=== PATIENT | male | born 1965 | race Hispanic/Latino ===

== ENCOUNTER 2019-11-07 20:27 | Emergency (ER) | payer OTHER ==
[2019-11-07 23:27] LABS: Absolute Lymphocytes (CBC) 3.1 K/uL (0.7-4.9); Basophils % 0.8 % (0-1.3); Hematocrit 46.6 % (39.6-49.0); Lymphocytes % 22.8 % (15.3-44.8); MPV 8.2 fL (7.6-11.3); RBC Red Blood Cell Count 5.28 M/uL (4.33-5.43)
[2019-11-07] MEDS ORDERED: NA CHLORIDE 0.9% 1,000 ML ONE (23:31)
[2019-11-07] MEDS ORDERED: KETOROLAC 30 MG/ML INJ ONE (23:44)
[2019-11-07 23:56] LABS: ALT/SGPT 34 U/L (12-78); AST/SGOT 17 U/L (15-37); Albumin 3.9 g/dL (3.4-5.0); Alkaline Phosphatase 93 U/L (45-117); BUN Blood Urea Nitrogen 14 mg/dL (7-18); Bicarbonate 28 mmol/L (21-32); Bilirubin Total 0.4 mg/dL (0.2-1.0); CKMB Creatine Kinase MB 2.4 ng/mL (0.3-3.6); Creatine Phosphokinase 200 U/L (39-308); Glucose Level 117 mg/dL (74-106); Protein, Total 7.5 g/dL (6.4-8.2); Sodium Level 140 mmol/L (136-145); Troponin (Emerg Dept Use Only) < 0.02 ng/mL (0.0-0.045)
--- NOTE | 2019-11-08 00:06 | ER ---
Nurse's Notes [facility] Name: Shan Jacome Age: 54 yrs Sex: Male : 1965 Arrival Date: 11/07/2019 Time: 20:29 Bed 14 Private MD: Diagnosis: Headache;Insomnia;Mastoiditis and related conditions Presentation: 11/06 20:52 Chief complaint: Patient states: i have right ear pressure few days ago and i have mg2 headache and nape pain today. denies fever and covid symptoms. i was taking ear drops and it's not helping. Coronavirus screen: Client denies travel out of the [place] in the last 14 days. At this time, the client does not indicate any symptoms associated with coronavirus-19. Ebola Screen: No symptoms or risks identified at this time. Initial Sepsis Screen: Does the patient meet any 2 criteria? No. Patient's initial sepsis screen is negative. Does the patient have a suspected source of infection? No. Patient's initial sepsis screen is negative. Risk Assessment: Do you want to hurt yourself or someone else? Patient reports no desire to harm self or others. Onset of symptoms was October 2019. 20:52 Method Of Arrival: Ambulatory mg2 20:52 Acuity: OLIVIA 4 mg2 Triage Assessment: 11/07 01:13 Headache History: The patient has had previous headaches. General: Appears in no mg2 apparent distress. comfortable. Pain: Pain currently is 0 out of 10 on a pain scale. Also complains of no other associated symptoms. Pain: Complains of pain in right base of the skull Pain began gradually. Historical: - Allergies: 11/06 20:56 No Known Allergies; mg2 - Home Meds: 20:56 vitorin [Active]; Nexium Oral [Active]; mg2 - PMHx: 20:56 acid reflux; High Cholesterol; mg2 - PSHx: 20:56 None; mg2 - Immunization history:: Flu vaccine is not up to date. - Social history:: Smoking status: Patient denies any tobacco usage or history of. Patient/guardian denies using alcohol, street drugs, IV drugs. - Family history:: not pertinent. Screenin:15 Abuse screen: Denies threats or abuse. Denies injuries from another. Nutritional mg2 screening: No deficits noted. Tuberculosis screening: No symptoms or risk factors identified. Fall Risk IV access (20 points). Assessment: 23:30 General: Appears in no apparent distress. comfortable, Behavior is calm, cooperative. mg2 Pain: Complains of pain in right base of the skull and right ear. Neuro: Level of Consciousness is awake, alert, obeys commands, Oriented to person, place, time, situation. Cardiovascular: Capillary refill < 3 seconds Patient's skin is warm and dry. Respiratory: Airway is patent Respiratory effort is even, unlabored, Respiratory pattern is regular, symmetrical. GI: No signs and/or symptoms were reported involving the gastrointestinal system. : No signs and/or symptoms were reported regarding the genitourinary system. EENT: Reports right ear pressure. Derm: Skin is intact, is healthy with good turgor, Skin is pink, warm \T\ dry. normal. Musculoskeletal: Circulation, motion, and sensation intact. Capillary refill < 3 seconds. Vital Signs: 20:52 BP 165 / 108; Pulse 59; Resp 17; Temp 98.1(TE); Pulse Ox 99% on R/A; Weight 95.25 kg; mg2 Height 5 ft. 9 in. (175.26 cm); 23:36 BP 139 / 81; Pulse 52; Resp 18; Pulse Ox 100% on R/A; mg2 20:52 Body Mass Index 31.01 (95.25 kg, 175.26 cm) mg2 Beau Coma Score: 23:15 Eye Response: spontaneous(4). Verbal Response: oriented(5). Motor Response: obeys garland commands(6). Total: 15. ED Course: 20:29 Patient arrived in ED. ag3 20:55 Triage completed. mg2 20:56 Arm band placed on. mg2 22:34 Chacho Jarquin MD is Attending Physician. garland 23:07 Karl Bonds, SIDNEY is Primary Nurse. mg2 23:15 Inserted saline lock: 20 gauge in right antecubital area, using aseptic technique. mg2 Blood collected. 23:38 CT Head Brain wo Cont In Process Unspecified. EDMS 11/07 00:05 Pedro Todd MD is Referral Physician. garland 00:07 Kaelyn López MD is Referral Physician. garland 00:46 Chest Single View XRAY In Process Unspecified. EDMS 01:12 No provider procedures requiring assistance completed. mg2 01:13 Patient has correct armband on for positive identification. mg2 01:13 IV discontinued, intact, bleeding controlled, No redness/swelling at site. Pressure mg2 dressing applied. Administered Medications: 11/06 23:16 Drug: NS 0.9% 1000 ml Route: IV; Rate: 1 bolus; Site: right antecubital; mg2 11/07 01:11 Follow up: Response: No adverse reaction; IV Status: Completed infusion; IV Intake: mg2 1000ml 11/06 23:40 Drug: TORadol 30 mg Route: IVP; Site: right antecubital; mg2 11/07 01:11 Follow up: Response: No adverse reaction; Marked relief of symptoms mg2 00:41 Drug: Rocephin 1 grams Route: IV; Rate: per protocol; Site: right antecubital; mg2 01:11 Follow up: Response: No adverse reaction; IV Status: Completed infusion mg2 01:02 Drug: Restoril 30 mg Route: PO; mg2 01:11 Follow up: Response: No adverse reaction; Medication administered at discharge. mg2 01:02 Drug: [place] 10 mg-325 mg 1 tabs Route: PO; mg2 01:11 Follow up: Response: No adverse reaction; Marked relief of symptoms; Medication mg2 administered at discharge. Intake: 01:11 IV: 1000ml; Total: 1000ml. mg2 Outcome: 00:05 Discharge ordered by . garland 01:14 Discharged to home ambulatory, with family. mg2 01:14 Condition: stable 01:14 Discharge instructions given to patient, family, Instructed on discharge instructions, follow up and referral plans. medication usage, Demonstrated understanding of instructions, follow-up care, medications, Prescriptions given X 3. 01:14 Patient left the ED. mg2 Signatures: Dispatcher [employer] EDChacho Chamberlain MD MD cha Gardose, Michele, RN RN mg2 Agustina Burton ag3 Corrections: (The following items were deleted from the chart) 11/06 20:56 20:52 Pulse 59bpm; Resp 17bpm; Pulse Ox 99% RA; Temp 98.1F Temporal; 95.25 kg; Height 5 mg2 ft. 9 in.; BMI: 31.0; mg2
--- NOTE | 2019-11-08 00:06 | EDPHYS ---
Physician Documentation [facility] Name: Shan Jacome Age: 54 yrs Sex: Male : 1965 Arrival Date: 11/07/2019 Time: 20:29 Bed 14 Private MD: ED Physician Chacho Jarquin HPI: 11/06 23:11 This 54 yrs old Male presents to ER via Ambulatory with complaints of garland Headache, Back Pain. 23:11 The patient complains of pain to the left side of the back of head, left occipital garland area, left ear, left base of the skull, right side of the back of head, right occipital area, right ear and right base of the skull. The patient describes the headache as aching, constant. Onset: The symptoms/episode began/occurred 3 day(s) ago. Associated signs and symptoms: Pertinent positives: bilateral ear pain. Severity of symptoms: At its worst the pain was mild, in the emergency department the pain is unchanged. Headache History: Denies prior headaches. The patient has not experienced similar symptoms in the past. Historical: - Allergies: 20:56 No Known Allergies; mg2 - Home Meds: 20:56 vitorin [Active]; Nexium Oral [Active]; mg2 - PMHx: 20:56 acid reflux; High Cholesterol; mg2 - PSHx: 20:56 None; mg2 - Immunization history:: Flu vaccine is not up to date. - Social history:: Smoking status: Patient denies any tobacco usage or history of. Patient/guardian denies using alcohol, street drugs, IV drugs. - Family history:: not pertinent. ROS: 23:11 Constitutional: Negative for fever, chills, and weight loss, Eyes: Negative for injury, garland pain, redness, and discharge, Neck: Negative for injury, pain, and swelling, Cardiovascular: Negative for chest pain, palpitations, and edema, Respiratory: Negative for shortness of breath, cough, wheezing, and pleuritic chest pain, Abdomen/GI: Negative for abdominal pain, nausea, vomiting, diarrhea, and constipation, Back: Negative for injury and pain, : Negative for injury, bleeding, discharge, and swelling, MS/Extremity: Negative for injury and deformity, Skin: Negative for injury, rash, and discoloration, Psych: Negative for depression, anxiety, suicide ideation, homicidal ideation, and hallucinations, Allergy/Immunology: Negative for hives, rash, and allergies, Endocrine: Negative for neck swelling, polydipsia, polyuria, polyphagia, and marked weight changes, Hematologic/Lymphatic: Negative for swollen nodes, abnormal bleeding, and unusual bruising. 23:11 ENT: Positive for ear pain. 23:11 Neuro: Positive for headache. Exam: 23:11 Constitutional: This is a well developed, well nourished patient who is awake, alert, garland and in no acute distress. Eyes: Pupils equal round and reactive to light, extra-ocular motions intact. Lids and lashes normal. Conjunctiva and sclera are non-icteric and not injected. Cornea within normal limits. Periorbital areas with no swelling, redness, or edema. ENT: Nares patent. No nasal discharge, no septal abnormalities noted. Tympanic membranes are normal and external auditory canals are clear. Oropharynx with no redness, swelling, or masses, exudates, or evidence of obstruction, uvula midline. Mucous membranes moist. Neck: Trachea midline, no thyromegaly or masses palpated, and no cervical lymphadenopathy. Supple, full range of motion without nuchal rigidity, or vertebral point tenderness. No Meningismus. Chest/axilla: Normal chest wall appearance and motion. Nontender with no deformity. No lesions are appreciated. Cardiovascular: Regular rate and rhythm with a normal S1 and S2. No gallops, murmurs, or rubs. Normal PMI, no JVD. No pulse deficits. Respiratory: Lungs have equal breath sounds bilaterally, clear to auscultation and percussion. No rales, rhonchi or wheezes noted. No increased work of breathing, no retractions or nasal flaring. Abdomen/GI: Soft, non-tender, with normal bowel sounds. No distension or tympany. No guarding or rebound. No evidence of tenderness throughout. Back: No spinal tenderness. No costovertebral tenderness. Full range of motion. Male : Normal genitalia with no discharge or lesions. Skin: Warm, dry with normal turgor. Normal color with no rashes, no lesions, and no evidence of cellulitis. MS/ Extremity: Pulses equal, no cyanosis. Neurovascular intact. Full, normal range of motion. Neuro: Awake and alert, GCS 15, oriented to person, place, time, and situation. Cranial nerves II-XII grossly intact. Motor strength 5/5 in all extremities. Sensory grossly intact. Cerebellar exam normal. Normal gait. Psych: Awake, alert, with orientation to person, place and time. Behavior, mood, and affect are within normal limits. 23:11 Head/face: Noted is tenderness, that is mild, of the left base of the skull and right base of the skull. 23:33 Neck: External neck: is normal, no acute changes, C-spine: no acute changes, [facility] ROM/movement: is normal, no acute changes, Meningeal signs: are not present, Kernig's sign is negative, Brudzinski's sign is negative. 23:41 ECG was reviewed by the Attending Physician. [facility] 11/07 00:05 Neck: Lymph nodes: no appreciated lymphadenopathy. [facility] Vital Signs: 11/06 20:52 BP 165 / 108; Pulse 59; Resp 17; Temp 98.1(TE); Pulse Ox 99% on R/A; Weight 95.25 kg; mg2 Height 5 ft. 9 in. (175.26 cm); 23:36 BP 139 / 81; Pulse 52; Resp 18; Pulse Ox 100% on R/A; mg2 20:52 Body Mass Index 31.01 (95.25 kg, 175.26 cm) mg2 [place] Coma Score: 23:15 Eye Response: spontaneous(4). Verbal Response: oriented(5). Motor Response: obeys [facility] commands(6). Total: 15. MDM: 22:35 Patient medically screened. garland 23:15 Differential diagnosis: cluster headache, hyponatremia, tension headache. Data [facility] reviewed: vital signs, nurses notes, lab test result(s), EKG, radiologic studies. Data interpreted: playground monitor: rate is 59 beats/min, rhythm is regular, Pulse oximetry: on room air is 99 %. Test interpretation: by ED physician or midlevel provider: ECG, plain radiologic studies. Counseling: I had a detailed discussion with the patient and/or guardian regarding: the historical points, exam findings, and any diagnostic results supporting the discharge/admit diagnosis, the presence of at least one elevated blood pressure reading (>120/80) during this emergency department visit, lab results, radiology results, the need for outpatient follow up. 11/06 23:10 Order name: CBC with Diff; Complete Time: 00:03 [facility] 11/06 23:10 Order name: Comprehensive Metabolic Panel; Complete Time: 00:03 [facility] 11/06 23:10 Order name: CK; Complete Time: 00:03 [facility] 11/06 23:10 Order name: Ckmb; Complete Time: 00:03 [facility] 11/06 23:10 Order name: Troponin (emerg Dept Use Only); Complete Time: 00:03 [facility] 11/06 23:10 Order name: TSH; Complete Time: 00:03 [facility] 11/06 23:10 Order name: CT Head Brain wo Cont [facility] 11/06 23:10 Order name: EKG; Complete Time: 23:11 [facility] 11/07 00:05 Order name: Chest Single View XRAY [facility] 11/06 23:10 Order name: EKG - Nurse/Tech; Complete Time: 23:30 [facility] EC:41 Rate is 51 beats/min. Rhythm is regular. QRS [place] is Normal. GA interval is normal. QRS [place] interval is normal. QT interval is normal. No Q waves. T waves are Normal. No ST changes noted. Clinical impression: NSR w/ Non-specific ST/T Changes and Sinus bradycardia. Interpreted by me. Reviewed by me. Administered Medications: 23:16 Drug: NS 0.9% 1000 ml Route: IV; Rate: 1 bolus; Site: right antecubital; mg2 11/07 01:11 Follow up: Response: No adverse reaction; IV Status: Completed infusion; IV Intake: mg2 1000ml 11/06 23:40 Drug: TORadol 30 mg Route: IVP; Site: right antecubital; mg2 11/07 01:11 Follow up: Response: No adverse reaction; Marked relief of symptoms mg2 00:41 Drug: Rocephin 1 grams Route: IV; Rate: per protocol; Site: right antecubital; mg2 01:11 Follow up: Response: No adverse reaction; IV Status: Completed infusion mg2 01:02 Drug: Restoril 30 mg Route: PO; mg2 01:11 Follow up: Response: No adverse reaction; Medication administered at discharge. mg2 01:02 Drug: [place] 10 mg-325 mg 1 tabs Route: PO; mg2 01:11 Follow up: Response: No adverse reaction; Marked relief of symptoms; Medication mg2 administered at discharge. Disposition: 11/08/19 00:05 Discharged to Home. Impression: Headache, Insomnia, Mastoiditis and related conditions. - Condition is Stable. - Discharge Instructions: General Headache Without Cause, Insomnia, General Headache Without Cause, [id number]. - Prescriptions for Restoril 15 mg Oral capsule - take 1 capsule by ORAL route once daily at bedtime as needed; 10 capsule. Augmentin 875- 125 mg Oral Tablet - take 1 tablet by ORAL route every 12 hours for 7 days; 14 tablet. Tylenol- Codeine #3 300-30 mg Oral Tablet - take 2 tablets by ORAL route every 6 hours As needed; 20 tablet. - Medication Reconciliation Form, Thank You Letter, Antibiotic Education, Prescription Opioid Use, Work release form form. - Follow up: Private Physician; When: 2 - 3 days; Reason: Recheck today's complaints, Continuance of care, Re-evaluation by your physician. Follow up: Pedro Todd; When: 2 - 3 days; Reason: Recheck today's complaints, Continuance of care, Re-evaluation by your physician. Follow up: Kaelyn López MD; When: 2 - 3 days; Reason: Recheck today's complaints, Re-evaluation by your physician. - Problem is new. - Symptoms have improved. Signatures: Dispatcher [employer] EDChacho Chamberlain MD MD cha Gardose, Michele, RN RN mg2 Corrections: (The following items were deleted from the chart) 00:07 00:05 11/08/2019 00:05 Discharged to Home. Impression: Headache; Insomnia. Condition is garland Stable. Discharge Instructions: General Headache Without Cause, Insomnia, General Headache Without Cause, [id number]. Prescriptions for Restoril 15 mg Oral capsule - take 1 capsule by ORAL route once daily at bedtime as needed; 10 capsule. and Forms are Medication Reconciliation Form, Thank You Letter, Antibiotic Education, Prescription Opioid Use. Follow up: Private Physician; When: 2 - 3 days; Reason: Recheck today's complaints, Continuance of care, Re-evaluation by your physician. Follow up: Pedro Todd; When: 2 - 3 days; Reason: Recheck today's complaints, Continuance of care, Re-evaluation by your physician. Problem is new. Symptoms have improved. garland 00:36 00:07 11/08/2019 00:05 Discharged to Home. Impression: Headache; Insomnia. Condition is garland Stable. Discharge Instructions: General Headache Without Cause, Insomnia, General Headache Without Cause, [id number]. Prescriptions for Restoril 15 mg Oral capsule - take 1 capsule by ORAL route once daily at bedtime as needed; 10 capsule, Augmentin 875-125 mg Oral Tablet - take 1 tablet by ORAL route every 12 hours for 7 days; 14 tablet. and Forms are Medication Reconciliation Form, Thank You Letter, Antibiotic Education, Prescription Opioid Use. Follow up: Private Physician; When: 2 - 3 days; Reason: Recheck today's complaints, Continuance of care, Re-evaluation by your physician. Follow up: Pedro Todd; When: 2 - 3 days; Reason: Recheck today's complaints, Continuance of care, Re-evaluation by your physician. Follow up: Kaelyn López; When: 2 - 3 days; Reason: Recheck today's complaints, Re-evaluation by your physician. Problem is new. Symptoms have improved. garland 01:14 00:36 11/08/2019 00:05 Discharged to Home. Impression: Headache; Insomnia; Mastoiditis mg2 and related conditions. Condition is Stable. Discharge Instructions: General Headache Without Cause, Insomnia, General Headache Without Cause, [id number]. Prescriptions for Restoril 15 mg Oral capsule - take 1 capsule by ORAL route once daily at bedtime as needed; 10 capsule, Augmentin 875-125 mg Oral Tablet - take 1 tablet by ORAL route every 12 hours for 7 days; 14 tablet. and Forms are Medication Reconciliation Form, Thank You Letter, Antibiotic Education, Prescription Opioid Use. Follow up: Private Physician; When: 2 - 3 days; Reason: Recheck today's complaints, Continuance of care, Re-evaluation by your physician. Follow up: Pedro Todd; When: 2 - 3 days; Reason: Recheck today's complaints, Continuance of care, Re-evaluation by your physician. Follow up: Kaelyn López; When: 2 - 3 days; Reason: Recheck today's complaints, Re-evaluation by your physician. Problem is new. Symptoms have improved. garland
[2019-11-08] MEDS ORDERED: CEFTRIAXONE/SWI 1gm 1 GM/10 ML SYR ONE (00:45)
[2019-11-08] MEDS ORDERED: TEMAZEPAM 15 MG CAP ONE (00:52)
[2019-11-08] MEDS ORDERED: HYDROCODONE/APAP 10/325 TAB ONE (01:12)
[2019-11-08 01:25] VITALS: BP 139/81; O2SAT 100
[2019-11-08 01:26] VITALS: TEMP 98.1
--- NOTE | 2019-11-08 07:19 | RAD REPORT ---
EXAM DESCRIPTION: Zeina Single View11/08/2019 12:46 am CLINICAL HISTORY: Cough COMPARISON: 2011 FINDINGS: The lungs appear clear of acute infiltrate. The heart is normal size IMPRESSION: No acute abnormalities displayed
--- NOTE | 2019-11-08 17:15 | RAD REPORT ---
EXAM DESCRIPTION: CT - Head Brain Wo Cont - 11/08/2019 6:42 am CLINICAL HISTORY: Dizziness; Headache TECHNIQUE: Contiguous axial CT images obtained through the brain without IV contrast. Coronal and sa gittal reformatted images were provided. This exam was performed according to our departmental dose-optimization program, which includes autom ated exposure control, adjustment of the mA and/or kV according to patient size and/or use of iterati ve reconstruction technique. COMPARISON: None available for comparison FINDINGS: Brain: No significant white matter changes. No focal mass effect. Olivares-white matter differ entiation is within normal limits. No hemorrhage. Ventricles: No ventriculomegaly or midline shift. Extra-axial spaces: No extra-axial collection or hemorrhage. Paranasal sinuses and mastoid air cells: Well-aerated Vessels: Unremarkable Bones: Unremarkable Soft tissues: Unremarkable IMPRESSION: No acute intracranial or extra-axial abnormality. Electronically signed by: Lennox Petty MD 11/07/2019 11:43 PM CDT Due to temporary technical issues with the PACS/Fluency reporting system, reports are being signed by the in house radiologist without review as a courtesy to ensure prompt reporting. The interpreting r adiologist is fully responsible for the content of the report.
--- NOTE | 2019-11-09 12:28 | EKG ---
Test Date: 2019-11-07 Test Time: 23:32:43 Assistant Professor Of Psychology: JENNIFER MEASUREMENT RESULTS: Intervals: Rate: 51 VA: 174 QRSD: 90 QT: 418 QTc: 385 [place]: P: 58 VA: 174 QRS: 69 T: 39 INTERPRETIVE STATEMENTS: Sinus bradycardia Otherwise normal ECG No previous ECG available for comparison Electronically Signed On 11-09-19 12:24:47 CDT by Derrick Ann
== END 2019-11-08 01:14 | disposition home or self-care (01) ==
LOC: ER 20:27
DX: G47.00 Insomnia, unspecified (principal); H70.93 Unspecified mastoiditis, bilateral; E78.00 Pure hypercholesterolemia, unspecified
CPT/HCPCS: 96365; 96361; 93005; 85025; 36415; 82550; 84443; 84484; 82553; 80053; 70450; 71045; 96375; 99284; J0696; J7030

== ENCOUNTER 2019-11-12 09:59 | Emergency (ER) | payer OTHER ==
[2019-11-12] MEDS ORDERED: NA CHLORIDE 0.9% 1,000 ML ONE (11:09)
--- NOTE | 2019-11-12 11:20 | RAD REPORT ---
EXAM DESCRIPTION: Zeina Single View11/12/2019 11:05 am CLINICAL HISTORY: Cough COMPARISON: November 08, 2019 FINDINGS: The lungs appear clear of acute infiltrate. The heart is normal size IMPRESSION: No acute abnormalities displayed
[2019-11-12 11:36] LABS: Absolute Lymphocytes (CBC) 1.7 K/uL (0.7-4.9); Basophils % 0.7 % (0-1.3); Lymphocytes % 16.8 % (15.3-44.8); MPV 8.1 fL (7.6-11.3); RBC Red Blood Cell Count 5.36 M/uL (4.33-5.43)
--- NOTE | 2019-11-12 11:44 | RAD REPORT ---
EXAM DESCRIPTION: CT - Head Brain Wo Cont - 11/12/2019 11:10 am CLINICAL HISTORY: Headache COMPARISON: November 07, 2019 TECHNIQUE: Computed axial tomography of the head was obtained. IV contrast was not requested. All CT scans are performed using dose optimization technique as appropriate and may include automated exposure control or mA/KV adjustment according to patient size. FINDINGS: An intracranial bleed is not seen . The ventricles are normal in caliber. No extra-axial fluid collection is noted. Fluid within the sinuses/ mastoids is not seen. IMPRESSION: No acute intracranial abnormality is seen. If patient's symptoms persist MRI of the bra in would be recommended.
[2019-11-12 11:59] LABS: ALT/SGPT 40 U/L (12-78); AST/SGOT 22 U/L (15-37); Alkaline Phosphatase 85 U/L (45-117); BUN Blood Urea Nitrogen 10 mg/dL (7-18); Bicarbonate 26 mmol/L (21-32); Bilirubin Direct 0.2 mg/dL (0-0.2); Bilirubin Total 0.6 mg/dL (0.2-1.0); Glucose Level 120 mg/dL (74-106); Magnesium 2.5 mg/dL (1.8-2.4); NT PRO-BNP 16 pg/mL (<125); Potassium 3.7 mmol/L (3.5-5.1); Protein, Total 7.4 g/dL (6.4-8.2); Sodium Level 141 mmol/L (136-145); Troponin (Emerg Dept Use Only) < 0.02 ng/mL (0.0-0.045)
--- NOTE | 2019-11-12 13:15 | ER ---
Nurse's Notes [facility] Name: Shan Jacome Age: 54 yrs Sex: Male : 1965 Arrival Date: 11/12/2019 Time: 10:00 Bed 2 Private MD: Diagnosis: Insomnia;Anxiety disorder, unspecified Presentation: 11/11 10:21 Chief complaint: Spouse and/or significant other states: : Was here for ca1 the same thing, was prescribed Amoxicillin for bacterial ear infection. Started to feel a little better, but has gotten worse last night. Shivers, headache, panic and anxiety attacks, feels like I am going to faint, gets worse after I take the medication. Denies hives but reports chest pressure, nausea. Coronavirus screen: Client denies travel out of the [place] in the last 14 days. At this time, the client does not indicate any symptoms associated with coronavirus-19. Ebola Screen: Patient negative for fever greater than or equal to 101.5 degrees Fahrenheit, and additional compatible Ebola Virus Disease symptoms Patient denies exposure to infectious person. Patient denies travel to an Ebola-affected area in the 21 days before illness onset. No symptoms or risks identified at this time. Initial Sepsis Screen: Does the patient meet any 2 criteria? No. Patient's initial sepsis screen is negative. Does the patient have a suspected source of infection? No. Patient's initial sepsis screen is negative. Risk Assessment: Do you want to hurt yourself or someone else? Patient reports no desire to harm self or others. Onset of symptoms was November 12, 2019. 10:21 Method Of Arrival: Wheelchair ca1 10:21 Acuity: OLIVIA 3 ca1 Historical: - Allergies: 10:25 No Known Allergies; ca1 - PMHx: 10:25 acid reflux; High Cholesterol; ca1 - PSHx: 10:25 None; ca1 - Immunization history:: Adult Immunizations up to date. - Social history:: Smoking status: Patient denies any tobacco usage or history of. - Family history:: not pertinent. Screenin:32 Abuse screen: Denies threats or abuse. Denies injuries from another. Nutritional jl7 screening: No deficits noted. Tuberculosis screening: No symptoms or risk factors identified. Fall Risk IV access (20 points). Total Farfan Fall Scale indicates No Risk (0-24 pts). Assessment: 10:30 General: Appears in no apparent distress. uncomfortable, Behavior is cooperative, jl7 anxious. Pain: Complains of pain in CORDERO. Neuro: Level of Consciousness is awake, alert, obeys commands, Oriented to person, place, time, situation. Cardiovascular: Patient's skin is warm and dry. Respiratory: Airway is patent Respiratory effort is even, unlabored, Respiratory pattern is regular, symmetrical. EENT: Reports "I was dx with a bacterial infection in the ear passages.". Derm: Skin is pink, warm \\T\\ dry. 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 11:25 Reassessment: pt states "i want to be covid swabbed", provider notified. tw2 11:30 Reassessment: provider at bedside at this time. tw2 11:32 Reassessment: Pt's states "I want you to test him for the bug that's in the jl7 water." Educated and pt that there's isn't a rapid test. Pt states "Ouch. I have a sharp pain in my neck." massaging pt's neck at this time. Will continue to monitor. 13:00 Reassessment: Patient appears in no apparent distress at this time. Patient and/or tw2 family updated on plan of care and expected duration. Pain level reassessed. Patient is alert, oriented x 3, equal unlabored respirations, skin warm/dry/pink. 13:30 Reassessment: Patient appears in no apparent distress at this time. Patient and/or tw2 family updated on plan of care and expected duration. Pain level reassessed. Patient is alert, oriented x 3, equal unlabored respirations, skin warm/dry/pink. Vital Signs: 10:21 BP 127 / 77; Pulse 57; Resp 18 S; Temp 97.6(TE); Pulse Ox 100% on R/A; Weight 95.25 kg ca1 (R); Height 5 ft. 9 in. (175.26 cm) (R); 11:30 BP 129 / 81; Pulse 59; Resp 16; Pulse Ox 100% on R/A; tw2 12:08 BP 138 / 77; Pulse 50; Resp 15; Pulse Ox 97% ; jl7 13:00 BP 114 / 61; Pulse 54; Resp 17; Pulse Ox 100% on R/A; tw2 13:19 BP 109 / 66; Pulse 57; Resp 17; Pulse Ox 99% on R/A; tw2 10:21 Body Mass Index 31.01 (95.25 kg, 175.26 cm) ca1 [place] Coma Score: 11:44 Eye Response: spontaneous(4). Verbal Response: oriented(5). Motor Response: obeys garland commands(6). Total: 15. ED Course: 10:00 Patient arrived in ED. as 10:24 Triage completed. ca1 10:25 Arm band placed on right wrist. ca1 10:29 Chacho Jarquin MD is Attending Physician. garland 10:30 Maryan Lozada, RN is Primary Nurse. tw2 10:30 Primary Nurse role handed off by Maryan Lozada, RN jl7 10:30 Argentina Mayorga, RN is Primary Nurse. jl7 10:30 Patient has correct armband on for positive identification. Placed in gown. Bed in low jl7 position. Call light in reach. Side rails up X2. manager monitoring on. Pulse ox on. NIBP on. Warm blanket given. 10:48 Warm blanket given. jl7 11:03 XRAY Chest (1 view) In Process Unspecified. EDMS 11:10 CT Head Brain wo Cont In Process Unspecified. EDMS 11:12 CT completed. Patient tolerated procedure well. Patient moved to CT via stretcher. sw Patient moved back from CT. 11:20 EKG done, by ED staff, reviewed by Chacho Jarquin MD. jl7 11:32 Initial lab(s) drawn, by wy, sent to lab. COVID swab sent to lab. Inserted saline lock: jl7 20 gauge in right wrist, using aseptic technique. Blood collected. 13:12 Ferny Karus MD is Referral Physician. garland 13:12 Smith Hinson MD is Referral Physician. garland 13:29 No provider procedures requiring assistance completed. IV discontinued, intact, tw2 bleeding controlled, No redness/swelling at site. Pressure dressing applied. Administered Medications: 11:50 Drug: NS 0.9% 1000 ml Route: IV; Rate: 1 bolus; Site: right wrist; jl7 13:20 Follow up: Response: No adverse reaction; IV Status: Completed infusion; IV Intake: tw2 1000ml Intake: 13:20 IV: 1000ml; Total: 1000ml. 2 Outcome: 13:13 Discharge ordered by . garland 13:29 Discharged to home ambulatory, with significant other. tw 13:29 Condition: stable 13:29 Discharge instructions given to patient, significant other, Instructed on discharge instructions, follow up and referral plans. no drinking with medication, no driving heavy equipment, medication usage, Demonstrated understanding of instructions, follow-up care, medications, Prescriptions given X 2. 13:30 Patient left the ED. tw2 Addendum: 11/19/2019 08:38 Addendum: COVID-19 Result: Negative result given to RN to notify pt. Notified pt of i w negative COVID 19 swab results. Pt advised that even with a negative test result they should remain in isolation until symptom free for 3 days without medication. Pt also advised to return to the ED for worsening symptoms. Signatures: Dispatcher [employer] EDAL Chacho Jarquin MD MD cha Martinez, Amelia as Williams, Irene RN Cristy Curran Tara, RN RN tw2 Argentina Mayorga RN RN jl7 Rossy Wan RN RN ca1 Corrections: (The following items were deleted from the chart) 11/11 10:48 10:30 Reassessment: provider at bedside at this time. tw2 jl7
--- NOTE | 2019-11-12 13:15 | EDPHYS ---
Physician Documentation [facility] Name: Shan Jacome Age: 54 yrs Sex: Male : 1965 Arrival Date: 11/12/2019 Time: 10:00 Bed 2 Private MD: SILVA Physician Chacho Jarquin HPI: 11/11 11:38 This 54 yrs old Male presents to ER via Wheelchair with complaints of garland Headache, Back Pain. 11:38 The patient complains of pain to the top of head, forehead, left frontal area, left garland side of the back of head, left occipital area, left base of the skull, right frontal area, right side of the back of head, right occipital area and right base of the skull. The patient describes the headache as aching. Onset: The symptoms/episode began/occurred 3 day(s) ago. Associated signs and symptoms: The patient has no apparent associated signs or symptoms. Severity of symptoms: At its worst the pain was mild, in the emergency department the pain is unchanged. Headache History: Denies prior headaches. The symptoms are alleviated by nothing. the symptoms are aggravated by alcohol. The patient has experienced a previous episode, last week. Historical: - Allergies: 10:25 No Known Allergies; ca1 - PMHx: 10:25 acid reflux; High Cholesterol; ca1 - PSHx: 10:25 None; ca1 - Immunization history:: Adult Immunizations up to date. - Social history:: Smoking status: Patient denies any tobacco usage or history of. - Family history:: not pertinent. ROS: 11:38 Constitutional: Negative for fever, chills, and weight loss, Eyes: Negative for injury, garland pain, redness, and discharge, ENT: Negative for injury, pain, and discharge, Neck: Negative for injury, pain, and swelling, Cardiovascular: Negative for chest pain, palpitations, and edema, Respiratory: Negative for shortness of breath, cough, wheezing, and pleuritic chest pain, Abdomen/GI: Negative for abdominal pain, nausea, vomiting, diarrhea, and constipation, Back: Negative for injury and pain, : Negative for injury, bleeding, discharge, and swelling, MS/Extremity: Negative for injury and deformity, Skin: Negative for injury, rash, and discoloration, Neuro: Negative for headache, weakness, numbness, tingling, and seizure, Psych: Negative for depression, anxiety, suicide ideation, homicidal ideation, and hallucinations, Allergy/Immunology: Negative for hives, rash, and allergies, Endocrine: Negative for neck swelling, polydipsia, polyuria, polyphagia, and marked weight changes, Hematologic/Lymphatic: Negative for swollen nodes, abnormal bleeding, and unusual bruising. 11:38 Neck: Negative for injury or acute deformity, pain at rest. Exam: 11:43 Constitutional: This is a well developed, well nourished patient who is awake, alert, garland and in no acute distress. Head/Face: Normocephalic, atraumatic. Eyes: Pupils equal round and reactive to light, extra-ocular motions intact. Lids and lashes normal. Conjunctiva and sclera are non-icteric and not injected. Cornea within normal limits. Periorbital areas with no swelling, redness, or edema. ENT: Nares patent. No nasal discharge, no septal abnormalities noted. Tympanic membranes are normal and external auditory canals are clear. Oropharynx with no redness, swelling, or masses, exudates, or evidence of obstruction, uvula midline. Mucous membranes moist. Chest/axilla: Normal chest wall appearance and motion. Nontender with no deformity. No lesions are appreciated. Cardiovascular: Regular rate and rhythm with a normal S1 and S2. No gallops, murmurs, or rubs. Normal PMI, no JVD. No pulse deficits. Respiratory: Lungs have equal breath sounds bilaterally, clear to auscultation and percussion. No rales, rhonchi or wheezes noted. No increased work of breathing, no retractions or nasal flaring. Abdomen/GI: Soft, non-tender, with normal bowel sounds. No distension or tympany. No guarding or rebound. No evidence of tenderness throughout. Back: No spinal tenderness. No costovertebral tenderness. Full range of motion. Male : Normal genitalia with no discharge or lesions. Skin: Warm, dry with normal turgor. Normal color with no rashes, no lesions, and no evidence of cellulitis. MS/ Extremity: Pulses equal, no cyanosis. Neurovascular intact. Full, normal range of motion. Neuro: Awake and alert, GCS 15, oriented to person, place, time, and situation. Cranial nerves II-XII grossly intact. Motor strength 5/5 in all extremities. Sensory grossly intact. Cerebellar exam normal. Normal gait. Psych: Awake, alert, with orientation to person, place and time. Behavior, mood, and affect are within normal limits. 11:43 Neck: ROM/movement: is normal, no acute changes, Meningeal signs: are not present, Kernig's sign is negative, Brudzinski's sign is negative. 11:46 ECG was reviewed by the Attending Physician. [facility] Vital Signs: 10:21 BP 127 / 77; Pulse 57; Resp 18 S; Temp 97.6(TE); Pulse Ox 100% on R/A; Weight 95.25 kg ca1 (R); Height 5 ft. 9 in. (175.26 cm) (R); 11:30 BP 129 / 81; Pulse 59; Resp 16; Pulse Ox 100% on R/A; tw2 12:08 BP 138 / 77; Pulse 50; Resp 15; Pulse Ox 97% ; jl7 13:00 BP 114 / 61; Pulse 54; Resp 17; Pulse Ox 100% on R/A; tw2 13:19 BP 109 / 66; Pulse 57; Resp 17; Pulse Ox 99% on R/A; tw2 10:21 Body Mass Index 31.01 (95.25 kg, 175.26 cm) ca1 [place] Coma Score: 11:44 Eye Response: spontaneous(4). Verbal Response: oriented(5). Motor Response: obeys [facility] commands(6). Total: 15. MDM: 10:[address] [facility] 11:44 Data reviewed: vital signs, nurses notes, lab test result(s), EKG, radiologic studies, [facility] CT scan, plain films. 11:44 Differential diagnosis: cluster headache, hyponatremia, meningitis, neoplasm, garland sinusitis, temporal arteritis, tension headache. 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 Test interpretation: by ED physician or midlevel provider: ECG, plain radiologic studies. Counseling: I had a detailed discussion with the patient and/or guardian regarding: the historical points, exam findings, and any diagnostic results supporting the discharge/admit diagnosis, the presence of at least one elevated blood pressure reading (>120/80) during this emergency department visit, lab results, radiology results, the need for outpatient follow up. 11/11 10:52 Order name: Basic Metabolic Panel; Complete Time: 12:54 [facility] 11/11 10:52 Order name: CBC with Diff; Complete Time: 12:54 [facility] 11/11 10:52 Order name: LFT's; Complete Time: 12:54 [facility] 11/11 10:52 Order name: Magnesium; Complete Time: 12:54 [facility] 11/11 10:52 Order name: NT PRO-BNP; Complete Time: 12:54 [facility] 11/11 10:52 Order name: Troponin (emerg Dept Use Only); Complete Time: 12:54 [facility] 11/11 10:52 Order name: XRAY Chest (1 view); Complete Time: 12:54 [facility] 11/11 10:52 Order name: EKG; Complete Time: 10:53 [facility] 11/11 10:52 Order name: Cardiac monitoring; Complete Time: 10:56 [facility] 11/11 10:52 Order name: EKG - Nurse/Tech; Complete Time: 11:46 [facility] 11/11 10:52 Order name: IV Saline Lock; Complete Time: 11:46 [facility] 11/11 10:52 Order name: CT Head Brain wo Cont; Complete Time: 12:54 [facility] 11/11 11:28 Order name: COVID-19 aa5 11/11 10:52 Order name: Labs collected and sent; Complete Time: 11:46 [facility] 11/11 10:52 Order name: O2 Per Protocol; Complete Time: 10:56 [facility] 11/11 10:52 Order name: O2 Sat Monitoring; Complete Time: 10:56 [facility] EC:46 Rate is 53 beats/min. Rhythm is regular. QRS [place] is Normal. [place] interval is normal. QRS [place] interval is normal. QT interval is normal. No Q waves. T waves are Normal. No ST changes noted. Clinical impression: Sinus bradycardia and No evidence of ischemia. Interpreted by me. Reviewed by me. Administered Medications: 11:50 Drug: NS 0.9% 1000 ml Route: IV; Rate: 1 bolus; Site: right wrist; jl7 13:20 Follow up: Response: No adverse reaction; IV Status: Completed infusion; IV Intake: tw2 1000ml Disposition: 11/12/19 13:13 Discharged to Home. Impression: Insomnia, Anxiety disorder, unspecified. - Condition is Stable. - Discharge Instructions: Panic Attacks, Insomnia, Panic Attacks, [id number]. - Prescriptions for Benadryl 25 mg Oral Capsule - take 1 capsule by ORAL route every 6 hours As needed; 30 tablet. Xanax 0.5 mg Oral Tablet - take 1 tablet by ORAL route every 8 hours As needed; 20 tablet. - Medication Reconciliation Form, Thank You Letter, Antibiotic Education, Prescription Opioid Use form. - Follow up: Private Physician; When: 2 - 3 days; Reason: Recheck today's complaints, Re-evaluation by your physician. Follow up: Ferny Kraus MD; When: 2 - 3 days; Reason: Recheck today's complaints, Re-evaluation by your physician. Follow up: Smith Hinson MD; When: 5 - 6 days; Reason: Recheck today's complaints, Re-evaluation by your physician. - Problem is new. - Symptoms have improved. Signatures: Dispatcher [employer] EDNH Chacho Jarquin MD MD cha Wise, Tara, RN RN tw2 Argentina Mayorga RN RN jl7 Rossy Wan RN RN ca1 Corrections: (The following items were deleted from the chart) 13:30 13:13 11/12/2019 13:13 Discharged to Home. Impression: Insomnia; Anxiety disorder, tw2 unspecified. Condition is Stable. Forms are Medication Reconciliation Form, Thank You Letter, Antibiotic Education, Prescription Opioid Use. Follow up: Private Physician; When: 2 - 3 days; Reason: Recheck today's complaints, Re-evaluation by your physician. Follow up: Ferny Kraus; When: 2 - 3 days; Reason: Recheck today's complaints, Re-evaluation by your physician. Follow up: Smith Hinson; When: 5 - 6 days; Reason: Recheck today's complaints, Re-evaluation by your physician. Problem is new. Symptoms have improved. garland
[2019-11-12 14:12] VITALS: TEMP 97.6
[2019-11-12 14:18] VITALS: BP 109/66; O2SAT 99
--- NOTE | 2019-11-13 05:40 | EKG ---
Test Date: 2019-11-12 Test Time: 11:18:14 Electrical Power Engineer: ISABEL MEASUREMENT RESULTS: Intervals: Rate: 53 AK: 180 QRSD: 90 QT: 402 QTc: 377 [place]: P: 59 AK: 180 QRS: 66 T: 72 INTERPRETIVE STATEMENTS: Sinus bradycardia Nonspecific ST abnormality Abnormal ECG Compared to ECG 11/07/2019 23:32:43 ST (T wave) deviation now present Electronically Signed On 11-13-19 05:38:16 CDT by Derrick Ann
== END 2019-11-12 13:30 | disposition home or self-care (01) ==
LOC: ER 09:59
DX: G47.00 Insomnia, unspecified (principal); F41.9 Anxiety disorder, unspecified
CPT/HCPCS: 93005; 85025; 80048; 36415; 83735; 80076; 84484; 83880; 70450; 71045; 96360; 99285; U0002; J7030